=== PATIENT | male | born 1995 | race Two or more races ===

== ENCOUNTER 2018-03-05 18:20 | Emergency (ER) | payer OTHER ==
[~2018-03-05] VITALS: Ht 172.7 cm; Wt 71.7 kg
[2018-03-05 18:46] VITALS: BP 104/65
== END 2018-03-05 20:30 | disposition home or self-care (01) ==
LOC: ER 18:20 → EDBD 18:20 → ER 20:30
DX: S61.012D Laceration without foreign body of left thumb without damage to nail, subsequent encounter (principal); X58.XXXD Exposure to other specified factors, subsequent encounter

== ENCOUNTER 2023-02-08 14:30 | Emergency (ER) | payer OTHER ==
[~2023-02-08] VITALS: Ht 175.3 cm; Wt 85.0 kg
[2023-02-08 15:38] VITALS: BP 137/75
[2023-02-08] MEDS ORDERED: HYDROcodone-ACET 5/325MG TAB PO ONE (16:00)
[2023-02-08] MEDS ORDERED: HYDR-4902 PO (16:07)
[2023-02-08] MEDS ORDERED: IBUP600T28 PO (16:07)
== END 2023-02-08 16:16 | disposition home or self-care (01) ==
LOC: ER 14:30
DX: S93.602A Unspecified sprain of left foot, initial encounter (principal); W18.39XA Other fall on same level, initial encounter; Y93.89 Activity, other specified; Y92.89 Other specified places as the place of occurrence of the external cause; Y99.8 Other external cause status
CPT/HCPCS: 29515; 73630